=== PATIENT | female | born 1960 | race Caucasian/White ===

== ENCOUNTER 2022-04-14 22:58 | Emergency (ER) | payer OTHER, SELFPAY ==
--- NOTE | ~2022-04-14 | XR_ITS ---
XR ankle RT min 3V 04/15/2022 00:01 Indication: Right ankle pain Procedure: 4 views right ankle Comparison: No prior studies for comparison. Findings: No fracture or traumatic malalignment. Ankle mortise intact. Small degenerative calcaneal e nthesophyte. Ossification of the Achilles tendon noted. Mild degenerative changes of the midfoot. Mod erate dorsal soft tissue swelling. There is atherosclerosis. Impression: 1: No acute fracture. Reviewed, dictated and finalized at location A. RAL RESOURCE TECHNICIAN Impression: 1: No acute fracture.
--- NOTE | ~2022-04-14 | CT_ITS ---
EXAMINATION: [facility] DATE: 04/15/2022 00:37 INDICATION: Lower extremity pain. TECHNIQUE: Axial computed tomographic angiography images of the right lower extremity with intravenou s contrast. 3-D reconstructed images were created and reviewed. The dose-length product was 1196.53 m Gy-cm. Automated exposure control and iterative reconstruction technique were employed. COMPARISON: None FINDINGS: Vasculature: Moderate atherosclerotic plaque is present causing mild-moderate stenosis of the right c ommon and external iliac arteries, estimated to be less than 50%. There is multifocal moderate-advanc ed stenosis within the femoral artery of 270-80%. Right calf/foot arteries: Moderate-advanced stenosi s within the popliteal artery, less than 80%. Three-vessel flow identified to the ankle. Lower extremity: No fracture, dislocation or subluxation. There is degenerative joint disease. No abn ormal contrast enhancement. IMPRESSION: 1. Moderate-severe stenosis present, worst in the femoral and popliteal arteries, although three-vess el flow is identified to the ankle. Reviewed, dictated and finalized at location A. SPORTATION SECURITY SCREENER IMPRESSION: 1. Moderate-severe stenosis present, worst in the femoral and popliteal arterie s, although three-vessel flow is identified to the ankle.
--- NOTE | ~2022-04-14 | XR_ITS ---
XR ankle LT min 3V 04/15/2022 00:00 Indication: Left ankle pain Procedure: 4 views left ankle Comparison: 09/26/2012 Findings: Osteopenia. No acute fracture, subluxation or dislocation. Small degenerative calcaneal ent hesophyte. There is mild osteoarthritis of the midfoot. Osteopenia. Ankle mortise intact. Talar dome is unremarkable. Impression: 1: No acute fracture. Reviewed, dictated and finalized at location A. FYING MACHINE OPERATOR Impression: 1: No acute fracture.
[2022-04-14 23:01] VITALS: BP 147/128; PULSE 94; RESP 22; TEMP 36.6; O2SAT 96
--- NOTE | 2022-04-14 23:20 | ECG_ITS ---
Measurements Intervals [place] Rate: 86 P: 37 MO: 125 QRS: 20 QRSD: 80 T: 52 QT: 370 QTc: 443 Interpretive Statements SINUS RHYTHM LOW QRS VOLTAGE IN PRECORDIAL LEADS BORDERLINE ECG NO PREVIOUS ECG AVAILABLE FOR COMPARISON Electronically Signed On 04-15-2022 13:35:30 MAINTENANCE SHOP WELDER by Charli Toribio M.D.
--- NOTE | 2022-04-14 23:30 | ED.GENADULT ---
HPI - General Adult General Chief complaint: Extremity Problem,Nontraumatic Stated complaint: PAIN/SWELLING BILAT LEGS History of Present Illness HPI narrative: This is a 61-year-old female presenting ED with chief complaint of lower extremity pain. Patient says the pain started on . She was riding to [facility] when she tried to stand up inside a car she felt her feet slipped forward and she fell back into her seat. She did not have any pain until last night. She says that it is intense pain in her feet that is nonradiating 10/10 constant. She has never experienced pain like this before. It is worse with movement in any sort of touch. She has taken 1 500 mg dose of Tylenol with no relief. Patient came to the ED tonight because she said the pain was unbearable. Patient has a history of congestive heart failure but has been taking her medications as directed. She has noticed increased swelling of her legs recently she denies any worsening difficulty breathing outside of her normal. She is on 3 L nasal cannula Related Data Home Medications Medication Instructions Recorded Confirmed aspirin 81 mg tablet,delayed 81 mg PO DAILY 04/30/19 release (Adult Low Dose Aspirin) bupropion HCl 150 mg tablet,12 hr 150 mg PO BID 04/30/19 sustained-release carvedilol 3.125 mg tablet 3.125 mg PO BID 04/30/19 clopidogrel 75 mg tablet 75 mg PO DAILY 04/30/19 diltiazem HCl 120 mg 120 mg PO DAILY 04/30/19 capsule,extended release 24 hr divalproex 500 mg tablet,delayed 500 mg PO BID 04/30/19 release furosemide 20 mg tablet 20 mg PO DAILY 04/30/19 gabapentin 300 mg capsule 300 mg PO TID 04/30/19 insulin lispro 100 unit/mL 1 sliding scale dose subcut DAILY 04/30/19 subcutaneous solution (Admelog U-100 Insulin lispro) insulin syringe,safetyneedle 0.3 #500 ea 04/30/19 mL 29 x 1/2 (Magellan Insulin Safety Syringe) levothyroxine 100 mcg tablet 100 mcg PO DAILY 04/30/19 (Synthroid) levothyroxine 125 mcg tablet 125 mcg PO DAILY 04/30/19 (Synthroid) lisinopril 2.5 mg tablet 2.5 mg PO DAILY 04/30/19 pantoprazole 40 mg tablet,delayed 40 mg PO DAILY 04/30/19 release potassium chloride 20 mEq 20 meq PO .every other day 04/30/19 tablet,extended release(part/cryst) (Klor-Con M) pravastatin 20 mg tablet 20 mg PO DAILY 04/30/19 trazodone 50 mg tablet 50 mg PO QPM PRN 04/30/19 zolpidem 5 mg tablet (Ambien) 5 mg PO QPM 04/30/19 Allergies Allergy/AdvReac Type Severity Reaction Status Date / Time codeine Allergy Unknown Unknown Verified 10/28/17 13:30 morphine Allergy Unknown Unknown Verified 10/28/17 13:30 Review of Systems Review of Systems: CONSTITUTIONAL: Denies night sweats. EYES: No eye pain ENT: Denies rhinorrhea CARDIOVASCULAR: Denies palpitations RESPIRATORY: Denies hemoptysis GASTROINTESTINAL: Denies hematemesis GENITOURINARY: Denies hematuria. SKIN: Denies rash MUSCULOSKELETAL: Denies myalgia. NEUROLOGIC: Denies weakness. PSYCHIATRIC: Denies delusions [facility] Past Medical History Medical History CKD (chronic kidney disease) COPD (chronic obstructive pulmonary disease) Dysphagia GI hemorrhage Hyperlipidemia Hypertension Hypothyroidism Leukocytosis Myocardial infarction Radiculopathy of lumbar region Type 2 diabetes mellitus Surgical History Surgical History H/O section H/O: hysterectomy 1982 Family History Family History Mother Family history of thyroid disease Hypertension Family history of malignant neoplasm Family history of coronary artery disease Father Family history of coronary artery disease Family history of lung disease Sibling Family history of coronary artery disease Social History Social History Alcohol intake: cur
[2022-04-14 23:51] LABS: Glucose Point of Care 252 mg/dl (65-105)
[2022-04-14] MEDS: HYDROmorphone HCL INJ (*CRX) 1 MG/ML SYR 0.5 MG IV PUSH (23:55)
[2022-04-14] MEDS: SODIUM CHLORIDE 0.9% IV 1,000 ML 999 ML IV CONT (23:55)
[2022-04-14 23:56] LABS: Basophils Absolute Auto 0.1 K/mm3 (0.0-0.1); Basophils Percent Auto 1.1 % (0.2-1.2); Eosinophils Absolute Auto 0.1 K/mm3 (0-0.3); Eosinophils Percent Auto 1.1 % (0-4.4); Hematocrit 41.9 % (37.0-47.0); Hemoglobin 13.6 g/dL (12.0-15.0); Immature Granulocyte Absolute 0.12 K/mm3 (0.00-0.031); Immature Granulocyte Percent A 1.6 % (0-0.5); Lymphocytes Absolute Auto 1.78 K/mm3 (0.9-3.2); Mean Corpuscular HGB Conc 32.5 g/dl (32-36); Mean Corpuscular Hemoglobin 30.8 pg (26-34); Mean Platelet Volume 9.8 fl (7.4-10.4); Monocytes Absolute Auto 0.6 K/mm3 (0.1-0.6); Monocytes Percent Auto 8.6 % (2.6-8.5); Neutrophils Absolute Auto 4.7 K/mm3 (1.3-6.7); Neutrophils Percent Auto 63.6 % (45.5-73.1); Platelet Count Result 199 k/mm3 (150-375); Red Blood Count 4.41 M/mm3 (4.2-5.4); Red Cell Distribution Width 14.6 % (11.5-14.5); White Blood Count 7.4 K/mm3 (4.5-10.0)
[2022-04-14] MEDS: ACETAMINOPHEN 500 MG TABLET 1000 MG PO (23:56)
[2022-04-14] MEDS: IBUPROFEN 400 MG TABLET 800 MG PO (23:56)
[2022-04-15 00:04] LABS: Lactic Acid Reflex 2.2 mmol/L (0.7-2.0)
[2022-04-15 00:11] LABS: INR 0.9; Partial Thromboplastin Time 24.2 SECONDS (22.3-36.8); Prothrombin Time 11.9 Seconds (11.1-14.7)
[2022-04-15 00:14] LABS: NT Pro B Type Natriuretic Pept 290 pg/mL (5-100)
[2022-04-15 00:46] LABS: Anion Gap 7 mmol/L (8-16); Blood Urea Nitrogen 20 mg/dL (7-17); Calcium 8.5 mg/dL (8.4-10.2); Carbon Dioxide 30 mmol/L (22-30); Chloride 99 mmol/L (98-107); Estimated CRCL calculation 102 ml/min; Estimated Glomerular Filt Rate > 60; Glucose 247 mg/dL (65-110); Magnesium 2.1 mg/dL (1.6-2.3); Phosphorus 3.7 mg/dL (2.5-4.5); Potassium 4.1 mmol/L (3.4-5.0); Sodium 136 mmol/L (137-145)
[2022-04-15 02:53] LABS: Reflex Lactic Acid Yes or No Add Lactic
--- NOTE | 2022-04-15 17:19 | PCCCNOTE ---
Phone call received from ED assistant secretary that the patient's pharmacy called and will need a prior authorization the Eliquis medication. Patient was not given a trial card when discharged early this morning. Called to patient's pharmacy, [facility], and spoke with pharmacy salesperson that confirms PA is needed and provided the phone # to call. Called to Med which directs to print form and fax to [phone]. Dr. Elam signed prior auth form and this form along with supporting clinical was fax'd to [phone] successfully.
== END 2022-04-15 03:56 | disposition home or self-care (01) ==
PROVIDERS: Emergency Provider Emergency Medicine; PCP Internal Medicine Gastroenterology
DX: I73.9 Peripheral vascular disease, unspecified (principal); E11.22 Type 2 diabetes mellitus with diabetic chronic kidney disease; I12.9 Hypertensive chronic kidney disease with stage 1 through stage 4 chronic kidney disease, or unspecified chronic kidney disease; N18.9 Chronic kidney disease, unspecified; I25.2 Old myocardial infarction; E78.5 Hyperlipidemia, unspecified; J44.9 Chronic obstructive pulmonary disease, unspecified
CPT/HCPCS: 36415; 73610; 73706; 80048; 82948; 83605; 83735; 83880; 84100; 85025; 85610; 85730; 93005; 96361; 96374; 99284; A9270; J1170; J7030; Q9967